=== PATIENT | female | born 1960 | race Caucasian/White ===

== ENCOUNTER 2017-04-10 08:35 | Outpatient (CLI) ==
[2016-02-10 11:48] VITALS: BMI 32.3
--- NOTE | 2017-04-10 09:38 | DEXA ---
EXAM: Bone densitometry. History: Postmenopausal. Findings: Evaluation of the left hip reveals a total bone mineral density of 0.951 grams per centimeter squared with T-score of negative 0.4. Evaluation of the right hip reveals a total bone mineral density of 0.914 grams per centimeter square d with T-score of negative 0.7. Impression: Normal bone mineral density of bilateral hips.
--- NOTE | 2017-04-11 08:33 | MAMMO ---
EXAM: Bilateral digital screening mammogram History: Screening Comparison: Bilateral mammogram 12/08/2013 Findings: MLO and CC views of bilateral breasts demonstrate scattered fibroglandular breast parenchy ma. CAD was reviewed by the radiologist. Stable benign bilateral breast calcifications. There are no dominant masses, no suspicious microcalcifications and no architectural distortions Impression: Benign stable mammogram. Recommend followup routine screening mammography in 1 year. BIRADS 2
== END 2017-04-10 08:36 | disposition home or self-care (01) ==
LOC: RAD 08:35
PROVIDERS: ATTEND Family Medicine
DX: Z12.31 Encounter for screening mammogram for malignant neoplasm of breast (principal); E89.40 Asymptomatic postprocedural ovarian failure; Z78.0 Asymptomatic menopausal state
CPT/HCPCS: 77067

== ENCOUNTER 2017-11-02 09:43 | Outpatient (CLI) | payer OTHER ==
[2016-02-10 11:48] VITALS: BMI 32.3
--- NOTE | 2017-11-02 10:24 | CT ---
EXAM: CT scan thorax without contrast HISTORY: Weight loss COMPARISON: None. FINDINGS: Tenuous axial images obtained through the thorax without contrast utilizing 5-mm collimati on. Sagittal and coronal reconstructions were imaged and reviewed. The thoracic inlet is unremarkabl e. There is no evidence of mediastinal or axillary lymphadenopathy. Evaluation of hilar structures is limited without intravenous contrast. The ascending aorta is mildly ectatic measuring 3.3 centime ters. The heart is normal in size without pericardial effusion.. The lungs are clear bilaterally.. Bone windows reveals no evidence of lytic or blastic lesions. IMPRESSION: No acute intrathoracic findings.
--- NOTE | 2017-11-02 10:32 | CT ---
EXAM: CT scan abdomen pelvis without contrast HISTORY: Weight loss COMPARISON: None. FINDINGS: Contiguous axial images obtained through the abdomen pelvis without contrast utilizing 5-m m collimation. Sagittal and coronal reconstructions were imaged and reviewed. There has been prior c holecystectomy. The liver, pancreas, spleen and adrenal glands have normal unenhanced CT appearance. The kidneys are morphologically normal. Atherosclerotic changes are seen involving the aorta with out aneurysm formation.. There has been prior hysterectomy. Bladder is decompressed. There is no fr ee fluid or inflammatory changes.. Bone windows reveals no evidence of lytic or blastic lesions. De generative changes are noted at L5-S1. IMPRESSION: Acute intra-abdominal findings. ASVD without aneurysm. Prior hysterectomy
== END 2017-11-02 09:44 | disposition home or self-care (01) ==
LOC: RAD 09:43
PROVIDERS: ATTEND Family Medicine
DX: R63.4 Abnormal weight loss (principal); R11.0 Nausea

== ENCOUNTER 2017-12-11 06:30 | Outpatient (CLI) | payer OTHER ==
[2016-02-10 11:48] VITALS: BMI 32.3
[2017-12-11] MEDS ORDERED: DOBUTAMINE 250 ML IV ONE (07:08)
[2017-12-11] MEDS ORDERED: ATROPINE SULFATE PFS ONE (07:08)
--- NOTE | 2017-12-11 12:46 | ECHOSTRESS ---
Date of Exam: 12/11/17 Ordering Physician: DR. DONALD LANDA Reason for Echo: SOB, CHEST PAIN, HYPERTENSION, DOBUTAMINE STRESS TEST--NO ISCHEMIA M-Mode Normal Adult Results LV Dimensions Normal Adult Results AoV Opening excursions >1.6 LVEDD-base- 3.5-5.8 Ao root dimensions 2.0-3.7 LVESD-base- 3.1-4.6 L. Atrium dimensions 1.9-3.8 Post. Wall thickness 0.8-1.1 IV septum (thickness) 0.7-1.2 Post. Wall excursion 0.72-1.3 Septal motion Systolic motion R. Ventricular cavity 1.5-2.0 LVEF 60% Paradoxical septal wall motion 2-D: NORMAL LEFT VENTRICULAR CONTRACTILITY--RESTING AND DURING DOBUTAMINE INFUSION M-MODE: MV: AV: TV: PV: CHAMBER SIZE: WALL MOTION: NORMAL LEFT VENTRICULAR CONTRACTILITY--RESTING AND DURING DOBUTAMINE INFUSION PERICARDIUM: INTERPRETATION: 1. NORMAL LEFT VENTRICULAR CONTRACTILITY--RESTING AND DURING DOBUTAMINE INFUSION MTDD
--- NOTE | 2017-12-11 12:55 | DOBSTECHO ---
Date of Test: 12/11/17 Ordering Physician: DR. DONALD LANDA Smoking History: NON SMOKER Reason for Examination: CHEST PAIN, HTN, SOB Current Medications: COGENTIN, FLEXERIL, HCTZ, KLOR-CON, ZANTAC Height: 66 " Weight: 171 LBS Target Heart Rate: 138/163 S-T Segment Stage Time HR BPM BP MMHG Rhythm +/- Elevation Depression Comments/ Symptoms Control Sitting 69 120/62 SR X NONE Dobutamine 250mg/D5W 5cmg/KG/mn 10cmg/KG/mn 3:00 78 150/72 SR X NO COMMENTS 15cmg/KG/mn 2:00 88 SR X NO COMMENTS 20cmg/KG/mn 2:00 94 160/68 SR X NO COMMENTS 25cmg/KG/mn 2:00 97 SR X NO COMMENTS 30cmg/KG/mn 2:00 109 160/70 SR X NO COMMENTS 35cmg/KG/mn 2:00 113 SR X .12 MG ATROPINE 40cmg/KG/mn 3:52 132 160/60 SR X NO COMMENTS Time: 3:00 HR B/P Time: 7:00 HR B/P Time: HR B/P Recovery 115 148/78 Recovery 102 130/80 Recovery Total Time: 15:52 Maximum Heart Rate Reached: 132 Interpretation: 98% OXYGEN SATURATION WITH DOBUTAMINE INFUSION 1. NO EVIDENCE OF ISCHEMIA BY ST-T WAVE 2. NO CHEST PAIN OR DISCOMFORT 3. NORMAL LEFT VENTRICULAR CONTRACTILITY--RESTING AND WITH DOBUTAMINE INFUSION MTDD
== END 2017-12-11 06:31 | disposition home or self-care (01) ==
LOC: CAR 06:30
PROVIDERS: ATTEND Family Medicine
DX: R06.02 Shortness of breath (principal)

== ENCOUNTER 2018-09-25 08:00 | Outpatient (RCR) ==
[2016-02-10 11:48] VITALS: BMI 32.3
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
--- NOTE | 2018-09-03 13:28 | RS.OTDNOTE ---
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 Current Complaints/Gains: Pt with c/o increased swelling and pain upon entering therapy but states decreased pain and swelling noted following tx. States fair compliance with HEP but that she has not been utilizing a CP and that she has been taking her thumb spica splint off duirng sitting rests. Pain Assessment - Pain Description Pain Description: Radiating, Sharp, Aching Pain Location: Left wrist ulnar side. and left thumb. Pain Description: sharp pain in the thumb, and wrist area. Modalities - Treatment Modality: Ultrasound Parameters/Method Applied: .04w/cm2 at 50%, 3.3mHz Patient Position: Sitting - Hot Pack/Cryotherapy Treatment: Cryotherapy Comments:: x10 mins with pt ed on importance of CP application 3+ times daily at home. Interventions - Exercise/Activities Exercise/Activities/Manual Therapy: Retrograde massage performed with pt ed on performing at home, use of gloves for edema tio, ice pack application, positoning, and HEP worksheets given in [place]. Pt instructed on thumb and wrist exercises and to perform several times daily including thumb opposition, thumb flexion/extension, radial extension, yost abduction/circumduction, and opposition. Tendon glides of straight positon, hook fist, straight fist, and full fist along with wrist ex's of wrist flexion/extension, radial/ulnar deviationm wrist circles and pro/supination. HOME EXERCISE PROGRAM: Pt has protocol to follow from . Stage 2 to begin Sep 10. Stage 3 Sep 24, stage 4 October 22. - Objective Findings Objective Findings:: Pt has alot of pain with the thumb. Pt has limited movements of the left thumb and UE. Pt has edema of the left thumb in the hypothenar and thenar eminences. - Charges Timed Code Treatment Minutes: 52 Total Treatment Time: 61 Procedures billed for this date of service:: CP US EX MT Assessment Patient Education: Education of diagnosis, Body/Joint mechanics, Home Exercise Program, Home Safety, Activity Modification, Education of Plan of Care Patient demonstrates compliance with HEP?: Yes Short Term Goals Goal #1: Pt to increase pronation/supination AROM to WFL. Goal to be met by: 09/13/18 Progress towards goal: Progressing Comments: performed in GE position this date Goal #2: Pt to increase LUE opposition to thumb to lacks 1-2 cm. Goal to be met by: 09/13/18 Progress towards goal: Progressing Goal #3: Pt to increase L wrist extension to 55 deg. Goal to be met by: 09/13/18 Progress towards goal: Progressing Goal #4: Pt pain to decrease to 1-2/10. Goal to be met by: 09/13/18 Progress towards goal: Progressing Retirement Goals Goal #1: Pt to increase LUE hand and wrist AROM to be WFL. Goal to be met by: 10/11/18 Progress towards goal: Progressing Goal #2: Pt to be independent with home exercise program. Goal to be met by: 10/11/18 Progress towards goal: Progressing Goal #3: Pt pain in L hand/wrist 0-1/10. Goal to be met by: 10/11/18 Progress towards goal: Progressing Goal #4: Pt to increase strength of L hand/wrist to 4+/5. Goal to be met by: 10/11/18 Progress towards goal: Progressing Plan Dates of Retirement Goals: 10/11/18 Expiration date of current Insurance Approval:: 10/11/18 PLAN: Continue per POC to max fx (L) hand AROM and strength.
--- NOTE | 2018-09-04 13:47 | RS.OTDNOTE ---
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 Current Complaints/Gains: Pt states she is pleased with her progress and that she is surprised how much the swelling has decreased. States increased compliance/understanding of HEP and applying CP. Pain Assessment - Pain Description Pain Description: Radiating, Sharp, Aching Pain Location: Left wrist ulnar side. and left thumb. Pain Description: sharp pain in the thumb, and wrist area. Modalities - Treatment Modality: Ultrasound Parameters/Method Applied: .04w/cm2 at 50%, 3.3mHz Patient Position: Sitting - Hot Pack/Cryotherapy Treatment: Cryotherapy Comments:: ice massage/MT with continued ed for CP application at home. Interventions - Exercise/Activities Exercise/Activities/Manual Therapy: Pt education continued on thumb and wrist exercises and to perform several times daily including thumb opposition, thumb flexion/extension, radial extension, yost abduction/circumduction, and opposition. Tendon glides of straight positon, hook fist, straight fist, and full fist along with wrist ex's of wrist flexion/extension, radial/ulnar deviation wrist circles and pro/supination. Positioning of hand and use of glove for edema tio. HOME EXERCISE PROGRAM: Pt has protocol to follow from . Stage 2 to begin Sep 10. Stage 3 Sep 24, stage 4 October 22. - Objective Findings Objective Findings:: Pt has alot of pain with the thumb. Pt has limited movements of the left thumb and UE. Pt has edema of the left thumb in the hypothenar and thenar eminences. - Charges Timed Code Treatment Minutes: 58 Total Treatment Time: 58 Procedures billed for this date of service:: MT EX2 US Assessment Patient Education: Education of diagnosis, Body/Joint mechanics, Home Exercise Program, Home Safety, Activity Modification, Education of Plan of Care Patient demonstrates compliance with HEP?: Yes Short Term Goals Goal #1: Pt to increase pronation/supination AROM to WFL. Goal to be met by: 09/13/18 (GE plane) Progress towards goal: Partially Met Goal #2: Pt to increase LUE opposition to thumb to lacks 1-2 cm. Goal to be met by: 09/13/18 (met digits 2-4.) Progress towards goal: Partially Met Goal #3: Pt to increase L wrist extension to 55 deg. Goal to be met by: 09/13/18 Progress towards goal: Progressing Goal #4: Pt pain to decrease to 1-2/10. Goal to be met by: 09/13/18 Progress towards goal: Progressing [facility] Goals Goal #1: Pt to increase LUE hand and wrist AROM to be WFL. Goal to be met by: 10/11/18 Progress towards goal: Progressing Goal #2: Pt to be independent with home exercise program. Goal to be met by: 10/11/18 Progress towards goal: Progressing Goal #3: Pt pain in L hand/wrist 0-1/10. Goal to be met by: 10/11/18 Progress towards goal: Progressing Goal #4: Pt to increase strength of L hand/wrist to 4+/5. Goal to be met by: 10/11/18 Progress towards goal: Progressing Plan Dates of Passenger Relations Representative Goals: 10/11/18 Expiration date of current Insurance Approval:: 10/11/18 PLAN: Continue per POC to max functional hand AROM/strength
--- NOTE | 2018-09-06 11:14 | RS.OTDNOTE ---
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 Current Complaints/Gains: Pt states good compliance with HEP/CP application. States some "tenderness" radial aspect of forearm. Pain Assessment - Pain Description Pain Description: Radiating, Sharp, Aching Pain Location: Left wrist ulnar side. and left thumb. Pain Description: sharp pain in the thumb, and wrist area. Modalities - Treatment Modality: Ultrasound Parameters/Method Applied: .04w/cm2 x 12 mins, 50% at 3.3mHz Patient Position: Sitting - Hot Pack/Cryotherapy Treatment: Cryotherapy Comments:: Ice massage performed Interventions - Exercise/Activities Exercise/Activities/Manual Therapy: Pt education continued on thumb and wrist exercises and to perform several times daily including thumb opposition, thumb flexion/extension, radial extension, yost abduction/circumduction, and opposition. Tendon glides of straight positon, hook fist, straight fist, and full fist along with wrist ex's of wrist flexion/extension, radial/ulnar deviation wrist circles and pro/supination. Positioning of hand and use of glove for edema tio. HOME EXERCISE PROGRAM: Pt has protocol to follow from [facility]. Stage 2 to begin Sep 10. Stage 3 Sep 24, stage 4 October 22. - Objective Findings Objective Findings:: Pt has alot of pain with the thumb. Pt has limited movements of the left thumb and UE. Pt has edema of the left thumb in the hypothenar and thenar eminences. - Charges Timed Code Treatment Minutes: 49 Total Treatment Time: 52 Procedures billed for this date of service:: US EX MT Assessment Patient Education: Education of diagnosis, Body/Joint mechanics, Home Exercise Program, Home Safety, Activity Modification, Education of Plan of Care Patient demonstrates compliance with HEP?: Yes Short Term Goals Goal #1: Pt to increase pronation/supination AROM to WFL. Goal to be met by: 09/13/18 (GE plane) Progress towards goal: Met Goal #2: Pt to increase LUE opposition to thumb to lacks 1-2 cm. Goal to be met by: 09/13/18 Progress towards goal: Met Goal #3: Pt to increase L wrist extension to 55 deg. Goal to be met by: 09/13/18 Progress towards goal: Progressing Goal #4: Pt pain to decrease to 1-2/10. Goal to be met by: 09/13/18 Progress towards goal: Progressing [employer] Goals Goal #1: Pt to increase LUE hand and wrist AROM to be WFL. Goal to be met by: 10/11/18 Progress towards goal: Progressing Goal #2: Pt to be independent with home exercise program. Goal to be met by: 10/11/18 Progress towards goal: Progressing Goal #3: Pt pain in L hand/wrist 0-1/10. Goal to be met by: 10/11/18 Progress towards goal: Progressing Goal #4: Pt to increase strength of L hand/wrist to 4+/5. Goal to be met by: 10/11/18 Progress towards goal: Progressing Plan Dates of Retirement Goals: 10/11/18 Expiration date of current Insurance Approval:: 10/11/18 PLAN: Continue per POC/protocol to max functional hand use.
--- NOTE | 2018-09-09 13:18 | RS.OTDNOTE ---
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 Current Complaints/Gains: Pt states she did not take any pain medicine this am. Began PROM this date, with pain increase noted. Pain Assessment - Pain Description Pain Description: Radiating, Sharp, Aching Pain Location: Left wrist ulnar side. and left thumb. Pain Description: sharp pain in the thumb, and wrist area. Current Pain Intensity: 0 Worst Pain Intensity: 8 Modalities - Hot Pack/Cryotherapy Treatment: Cryotherapy Interventions - Exercise/Activities Exercise/Activities/Manual Therapy: Pt education continued on thumb and wrist exercises and to perform several times daily including thumb opposition, thumb flexion/extension, radial extension, yost abduction/circumduction, and opposition. Tendon glides of straight positon, hook fist, straight fist, and full fist along with wrist ex's of wrist flexion/extension, radial/ulnar deviation wrist circles and pro/supination. PROM/gentle stretching and manual therapy also performed. HOME EXERCISE PROGRAM: Pt has protocol to follow from . Stage 2 to begin Sep 10. Stage 3 Sep 24, stage 4 October 22. - Objective Findings Objective Findings:: Pt has alot of pain with the thumb. Pt has limited movements of the left thumb and UE. Pt has edema of the left thumb in the hypothenar and thenar eminences. - Charges Timed Code Treatment Minutes: 48 Total Treatment Time: 61 Procedures billed for this date of service:: MT2 CP EX Assessment Patient Education: Education of diagnosis, Body/Joint mechanics, Home Exercise Program, Home Safety, Activity Modification, Education of Plan of Care Patient demonstrates compliance with HEP?: Yes Short Term Goals Goal #1: Pt to increase pronation/supination AROM to WFL. Goal to be met by: 09/13/18 (GE plane) Progress towards goal: Met Goal #2: Pt to increase LUE opposition to thumb to lacks 1-2 cm. Goal to be met by: 09/13/18 Progress towards goal: Met Goal #3: Pt to increase L wrist extension to 55 deg. Goal to be met by: 09/13/18 (PROM) Progress towards goal: Partially Met Goal #4: Pt pain to decrease to 1-2/10. Goal to be met by: 09/13/18 Progress towards goal: Progressing [facility] Goals Goal #1: Pt to increase LUE hand and wrist AROM to be WFL. Goal to be met by: 10/11/18 Progress towards goal: Progressing Goal #2: Pt to be independent with home exercise program. Goal to be met by: 10/11/18 Progress towards goal: Progressing Goal #3: Pt pain in L hand/wrist 0-1/10. Goal to be met by: 10/11/18 Progress towards goal: Progressing Goal #4: Pt to increase strength of L hand/wrist to 4+/5. Goal to be met by: 10/11/18 Progress towards goal: Progressing Plan Dates of Wet Trimmer Goals: 10/11/18 Expiration date of current Insurance Approval:: 10/11/18 PLAN: Continue per POC to max functional (L) hand strength/AROM
--- NOTE | 2018-09-11 10:20 | RS.OTDNOTE ---
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 Current Complaints/Gains: Pt states some increase of pain and that she took a muscle relaxer this am. States continued good compliance with CP application and HEP. States concern with swelling noted in thenar eminence of palm but notes all ROM is increasing. Pain Assessment - Pain Description Pain Description: Radiating, Sharp, Aching Pain Location: Left wrist ulnar side. and left thumb. Pain Description: sharp pain in the thumb, and wrist area. Current Pain Intensity: 1 Worst Pain Intensity: 7 Modalities - Treatment Modality: Ultrasound Parameters/Method Applied: .04w/cm2 at 3.3/50% - Treatment Comments:: ice massage performed following tx Interventions - Exercise/Activities Exercise/Activities/Manual Therapy: Pt education continued on thumb and wrist exercises and to perform several times daily including thumb opposition, thumb flexion/extension, radial extension, yost abduction/circumduction, and opposition. Tendon glides of straight positon, hook fist, straight fist, and full fist along with wrist ex's of wrist flexion/extension, radial/ulnar deviation wrist circles and pro/supination. PROM/gentle stretching and manual therapy also performed. HOME EXERCISE PROGRAM: Pt has protocol to follow from . Stage 2 to begin Sep 10. Stage 3 Sep 24, stage 4 October 22. - Objective Findings Objective Findings:: Pt has alot of pain with the thumb. Pt has limited movements of the left thumb and UE. Pt has edema of the left thumb in the hypothenar and thenar eminences. - Charges Timed Code Treatment Minutes: 48 Total Treatment Time: 48 Procedures billed for this date of service:: US EX MT Assessment Patient Education: Education of diagnosis, Body/Joint mechanics, Home Exercise Program, Home Safety, Activity Modification, Education of Plan of Care Patient demonstrates compliance with HEP?: Yes Short Term Goals Goal #1: Pt to increase pronation/supination AROM to WFL. Goal to be met by: 09/13/18 (GE plane) Progress towards goal: Met Goal #2: Pt to increase LUE opposition to thumb to lacks 1-2 cm. Goal to be met by: 09/13/18 Progress towards goal: Met Goal #3: Pt to increase L wrist extension to 55 deg. Goal to be met by: 09/13/18 (PROM) Progress towards goal: Partially Met Goal #4: Pt pain to decrease to 1-2/10. Goal to be met by: 09/13/18 Progress towards goal: Progressing Residential Goals Goal #1: Pt to increase LUE hand and wrist AROM to be WFL. Goal to be met by: 10/11/18 Progress towards goal: Progressing Goal #2: Pt to be independent with home exercise program. Goal to be met by: 10/11/18 Progress towards goal: Progressing Goal #3: Pt pain in L hand/wrist 0-1/10. Goal to be met by: 10/11/18 Progress towards goal: Progressing Goal #4: Pt to increase strength of L hand/wrist to 4+/5. Goal to be met by: 10/11/18 Progress towards goal: Progressing Plan Dates of Dumbwaiter Operator Goals: 10/11/18 Expiration date of current Insurance Approval:: 10/11/18 PLAN: Continue per POC to max functional I, strength, and AROM of (L) hand.
--- NOTE | 2018-09-13 10:55 | RS.OTDNOTE ---
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 Current Complaints/Gains: Pt voices and shows therapist skin irritation area on MCP of thumb from her brace. Ed on use of bandage for skin breakdown. Pt voices and demo good compliance of HEP and gaining AROM of digits and wrist. Pain Assessment - Pain Description Pain Description: Radiating, Dull, Aching Pain Location: Left wrist ulnar side. and left thumb. Current Pain Intensity: 1-2 Worst Pain Intensity: 5 Other comments regarding pain:: Took pain medicine this am prior to therapy. Modalities - Treatment Modality: Ultrasound Parameters/Method Applied: .04w/cm2 at 3.3/50% Patient Position: Sitting - Hot Pack/Cryotherapy Treatment: Cryotherapy Interventions - Exercise/Activities Exercise/Activities/Manual Therapy: Pt education continued on thumb and wrist exercises and to perform several times daily including thumb opposition, thumb flexion/extension, radial extension, yost abduction/circumduction, and opposition. Tendon glides of straight positon, hook fist, straight fist, and full fist along with wrist ex's of wrist flexion/extension, radial/ulnar deviation wrist circles and pro/supination. PROM/gentle stretching and manual therapy also performed. HOME EXERCISE PROGRAM: Pt has protocol to follow from . Stage 2 to begin Sep 10. Stage 3 Sep 24, stage 4 October 22. - Objective Findings Objective Findings:: Pt demo good compliance/understanding of HEP. Pt to continue therapy x2 next wk and perform I HEP. AROM increasing with therapy/ PROM. - Charges Timed Code Treatment Minutes: 50 Total Treatment Time: 61 Procedures billed for this date of service:: CP US EX MT Assessment Patient Education: Education of diagnosis, Body/Joint mechanics, Home Exercise Program, Home Safety, Activity Modification, Education of Plan of Care Patient demonstrates compliance with HEP?: Yes Short Term Goals Goal #1: Pt to increase pronation/supination AROM to WFL. Goal to be met by: 09/13/18 (GE plane) Progress towards goal: Met Goal #2: Pt to increase LUE opposition to thumb to lacks 1-2 cm. Goal to be met by: 09/13/18 Progress towards goal: Met Goal #3: Pt to increase L wrist extension to 55 deg. Goal to be met by: 09/13/18 (PROM) Progress towards goal: Met Goal #4: Pt pain to decrease to 1-2/10. Goal to be met by: 09/13/18 Progress towards goal: Progressing Director Vaccine Goals Goal #1: Pt to increase LUE hand and wrist AROM to be WFL. Goal to be met by: 10/11/18 Progress towards goal: Progressing Goal #2: Pt to be independent with home exercise program. Goal to be met by: 10/11/18 Progress towards goal: Progressing Goal #3: Pt pain in L hand/wrist 0-1/10. Goal to be met by: 10/11/18 Progress towards goal: Progressing Goal #4: Pt to increase strength of L hand/wrist to 4+/5. Goal to be met by: 10/11/18 Progress towards goal: Progressing Plan Dates of Custodial Goals: 10/11/18 Expiration date of current Insurance Approval:: 10/11/18 PLAN: Continue per POC to max functional hand AROM/strength.
--- NOTE | 2018-09-16 09:32 | RS.OTDNOTE ---
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 Current Complaints/Gains: Pt states c/o thenar eminence "nerve pain" States use of cushion material is helping with thumb/MCP and snuff box skin breakdown. Continued education for skin integ. and HEP. Pain Assessment - Pain Description Pain Description: Radiating, Dull, Aching Pain Location: Left wrist ulnar side. and left thumb. Pain Description: sharp pain in the thumb, and wrist area. Current Pain Intensity: 2 Worst Pain Intensity: 5 Modalities - Treatment Modality: Ultrasound Parameters/Method Applied: .04w/cm2 Patient Position: Sitting - Hot Pack/Cryotherapy Treatment: Cryotherapy Comments:: ice massage performed Interventions - Exercise/Activities Exercise/Activities/Manual Therapy: Pt education continued on thumb and wrist exercises and to perform several times daily including thumb opposition, thumb flexion/extension, radial extension, yost abduction/circumduction, and opposition. Tendon glides of straight positon, hook fist, straight fist, and full fist along with wrist ex's of wrist flexion/extension, radial/ulnar deviation wrist circles and pro/supination. PROM/gentle stretching and manual therapy also performed. HOME EXERCISE PROGRAM: Pt has protocol to follow from . Stage 2 to begin Sep 10. Stage 3 Sep 24, stage 4 October 22. - Objective Findings Objective Findings:: Pt demo good compliance/understanding of HEP. Pt to continue therapy x2 next wk and perform I HEP. AROM increasing with therapy/ PROM. - Charges Timed Code Treatment Minutes: 58 Total Treatment Time: 58 Procedures billed for this date of service:: MT2 EX US Assessment Patient Education: Education of diagnosis, Body/Joint mechanics, Home Exercise Program, Home Safety, Activity Modification, Education of Plan of Care Patient demonstrates compliance with HEP?: Yes Short Term Goals Goal #1: Pt to increase pronation/supination AROM to WFL. Goal to be met by: 09/13/18 (GE plane) Progress towards goal: Met Goal #2: Pt to increase LUE opposition to thumb to lacks 1-2 cm. Goal to be met by: 09/13/18 Progress towards goal: Met Goal #3: Pt to increase L wrist extension to 55 deg. Goal to be met by: 09/13/18 (PROM) Progress towards goal: Met Goal #4: Pt pain to decrease to 1-2/10. Goal to be met by: 09/13/18 Progress towards goal: Progressing Venipuncturist Goals Goal #1: Pt to increase LUE hand and wrist AROM to be WFL. Goal to be met by: 10/11/18 Progress towards goal: Progressing Goal #2: Pt to be independent with home exercise program. Goal to be met by: 10/11/18 Progress towards goal: Progressing Goal #3: Pt pain in L hand/wrist 0-1/10. Goal to be met by: 10/11/18 Progress towards goal: Progressing Goal #4: Pt to increase strength of L hand/wrist to 4+/5. Goal to be met by: 10/11/18 Progress towards goal: Progressing Plan Dates of [facility] Goals: 10/11/18 Expiration date of current Insurance Approval:: 10/11/18 PLAN: Continue per POC to max functional hand use.
--- NOTE | 2018-09-18 10:04 | RS.OTDNOTE ---
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 Current Complaints/Gains: Pt continues stating good compliance with HEP. States the extra "cushion" has helped with skin irritation. States she is having kidney trouble and attributes swelling to issue. Pain Assessment - Pain Description Pain Description: Radiating, Dull, Aching Pain Location: Left wrist ulnar side. and left thumb. Current Pain Intensity: 2 Worst Pain Intensity: 4-5 Modalities - Treatment Modality: Ultrasound Parameters/Method Applied: .04w/cm2 x 12 mins, pulsed at 50% Patient Position: Sitting - Hot Pack/Cryotherapy Treatment: Cryotherapy Comments:: Ice massage performed Interventions - Exercise/Activities Exercise/Activities/Manual Therapy: Pt education continued on thumb and wrist exercises and to perform several times daily including thumb opposition, thumb flexion/extension, radial extension, yost abduction/circumduction, and opposition. Tendon glides of straight positon, hook fist, straight fist, and full fist along with wrist ex's of wrist flexion/extension, radial/ulnar deviation wrist circles and pro/supination. PROM/gentle stretching and manual therapy also performed. HOME EXERCISE PROGRAM: Pt has protocol to follow from . Stage 2 to begin Sep 10. Stage 3 Sep 24, stage 4 October 22. - Objective Findings Objective Findings:: Pt demo good compliance/understanding of HEP. Pt to continue therapy x2 next wk and perform I HEP. AROM increasing with therapy/ PROM. - Charges Timed Code Treatment Minutes: 56 Total Treatment Time: 56 Procedures billed for this date of service:: MT2 EX Assessment Patient Education: Education of diagnosis, Body/Joint mechanics, Home Exercise Program, Home Safety, Activity Modification, Education of Plan of Care Patient demonstrates compliance with HEP?: Yes Short Term Goals Goal #1: Pt to increase pronation/supination AROM to WFL. Goal to be met by: 09/13/18 (GE plane) Progress towards goal: Met Goal #2: Pt to increase LUE opposition to thumb to lacks 1-2 cm. Goal to be met by: 09/13/18 Progress towards goal: Met Goal #3: Pt to increase L wrist extension to 55 deg. Goal to be met by: 09/13/18 Progress towards goal: Met Goal #4: Pt pain to decrease to 1-2/10. Goal to be met by: 09/13/18 Progress towards goal: Progressing Comments: 2-4/5 Director Of Community Center Goals Goal #1: Pt to increase LUE hand and wrist AROM to be WFL. Goal to be met by: 10/11/18 (Decreased radial/ulna deviation) Progress towards goal: Partially Met Goal #2: Pt to be independent with home exercise program. Goal to be met by: 10/11/18 Progress towards goal: Progressing Goal #3: Pt pain in L hand/wrist 0-1/10. Goal to be met by: 10/11/18 Progress towards goal: Progressing Goal #4: Pt to increase strength of L hand/wrist to 4+/5. Goal to be met by: 10/11/18 Progress towards goal: Progressing Plan Dates of Director Of Community Center Goals: 10/11/18 Expiration date of current Insurance Approval:: 10/11/18 PLAN: Continue per POC, protocol to advance to TE/strengthening/dry drug worker ex's next wk. OTR to re-assess pt on next (10th visit).
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
--- NOTE | 2018-09-25 09:35 | RS.OTDNOTE ---
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 Current Complaints/Gains: Pt at 10 wks post op today, ed on HEP with use of yellow t-band/putty. Pt instructed for splint use at night only. Pt states pain at 5/10 and states she did take her pain medicine this morning. Pain Assessment - Pain Description Pain Description: Radiating, Dull, Aching Pain Location: Left wrist ulnar side. and left thumb. Pain Description: sharp pain in the thumb, and wrist area. Current Pain Intensity: 2 Worst Pain Intensity: 5 Modalities - Treatment Parameters/Method Applied: .04w/cm2 x 10 mins Treatment Area: thenar eminence/snuff box Patient Position: Sitting - Hot Pack/Cryotherapy Treatment: Cryotherapy Comments:: Ice massage performed following tx Interventions - Exercise/Activities Exercise/Activities/Manual Therapy: 10 wks post-op TE protocol this date. Pt ed and completed yellow/red t-putty/digi-flex and 1# hand weight/yellow tband with PRE's ed performed for HEP. AROM wrist sports broadcaster performed. Pt education continued on thumb and wrist exercises and to perform several times daily including thumb opposition, thumb flexion/extension, radial extension, yost abduction/circumduction, and opposition. Tendon glides of straight positon, hook fist, straight fist, and full fist along with wrist ex's of wrist flexion/ extension, radial/ulnar deviation wrist circles and pro/supination. PROM/ gentle stretching and manual therapy performed with measurments performed for AROM/PROM and sampler pickup strengths. HOME EXERCISE PROGRAM: Pt has protocol to follow from . Stage 2 to begin Sep 10. Stage 3 Sep 24, stage 4 October 22. - Other Treatment/Services Treatment Details: GS (R)41# (L)[id number]#16#. Lateral pinch 8#. Tip-tip 7# - Objective Findings Objective Findings:: Pt demo good compliance/understanding of HEP. Pt to continue therapy x2 next wk and perform I HEP. AROM increasing with therapy/ PROM. - Charges Timed Code Treatment Minutes: 59 Total Treatment Time: 59 Procedures billed for this date of service:: MT EX2 Assessment Patient Education: Education of diagnosis, Body/Joint mechanics, Home Exercise Program, Home Safety, Activity Modification, Education of Plan of Care Patient demonstrates compliance with HEP?: Yes Short Term Goals Goal #1: Pt to tolerate LUE progressive putty exercises slowly. Goal to be met by: 10/04/18 (GE plane) Progress towards goal: Progressing Goal #2: Pt to tolerate progressive pinching exercises slowly Goal to be met by: 10/04/18 Progress towards goal: Progressing Goal #3: Pt to increase L wrist extension to 55 deg. Goal to be met by: 10/04/18 (PROM-GE ) Progress towards goal: Partially Met Goal #4: Pt pain to decrease to 1-2/10. Goal to be met by: 10/04/18 Progress towards goal: Progressing Comments: 5/10 Group Home Goals Goal #1: Pt to increase LUE hand and wrist AROM to be WFL. Goal to be met by: 10/18/18 (Decreased radial/ulna deviation) Progress towards goal: Partially Met Goal #2: Pt to be independent with home exercise program. Goal to be met by: 10/18/18 Progress towards goal: Progressing Goal #3: Pt pain in L hand/wrist 0-1/10. Goal to be met by: 10/18/18 Progress towards goal: Progressing Goal #4: Pt to increase strength of L hand/wrist to 4+/5. Goal to be met by: 10/18/18 Progress towards goal: Progressing Plan Dates of Group Home Goals: 10/18/18 Expiration date of current Insurance Approval:: 10/18/18 PLAN: Continue per POC to max functional hand use and strength.
== END 2018-09-26 23:59 ==
PROVIDERS: ATTEND Orthopaedic Surgery
DX: M25.832 Other specified joint disorders, left wrist (principal)

== ENCOUNTER 2018-10-16 08:00 | Outpatient (RCR) ==
[2016-02-10 11:48] VITALS: BMI 32.3
--- NOTE | 2018-09-27 10:25 | RS.OTDNOTE ---
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 Current Complaints/Gains: Pt states that she has been removing thumb splint as soon as she gets up in the mornings. States continued good compliance with HEP and is issued red t-putty today for wknd PRE's. Pain Assessment - Pain Description Pain Description: Radiating, Dull, Throbbing, Aching Pain Location: Left wrist ulnar side. and left thumb. Pain Description: sharp pain in the thumb, and wrist area. Current Pain Intensity: 2 Worst Pain Intensity: 7 Modalities - Treatment Modality: Ultrasound Parameters/Method Applied: .04w/cm2 x 12 mins to thenar eminence. Patient Position: Sitting - Hot Pack/Cryotherapy Treatment: Cryotherapy Comments:: CP x 10+ mins following tx. Interventions - Exercise/Activities Exercise/Activities/Manual Therapy: Pt ed and completed yellow/red t-putty/ green digi-flex/clothes pen and 1# hand weight/yellow tband with PRE's ed continued for HEP. AROM wrist crochet machine operator, jrodi-flex and digi-extend performed. Pt education continued on thumb and wrist exercises and to perform several times daily including thumb opposition, thumb flexion/extension, radial extension, yost abduction/circumduction, and opposition. Tendon glides of straight positon, hook fist, straight fist, and full fist along with wrist ex's of wrist flexion/extension, radial/ulnar deviation wrist circles and pro/ supination. PROM/gentle stretching and manual therapy performed. HOME EXERCISE PROGRAM: Pt has protocol to follow from . Stage 2 to begin Sep 10. Stage 3 Sep 24, stage 4 October 22. - Objective Findings Objective Findings:: Pt demo good compliance/understanding of HEP. Pt to continue therapy x2 next wk and perform I HEP. AROM increasing with therapy/ PROM. - Charges Timed Code Treatment Minutes: 61 Total Treatment Time: 70 Procedures billed for this date of service:: CP US EX2MT Assessment Patient Education: Education of diagnosis, Body/Joint mechanics, Home Exercise Program, Home Safety, Activity Modification, Education of Plan of Care Patient demonstrates compliance with HEP?: Yes Short Term Goals Goal #1: Pt to tolerate LUE progressive putty exercises slowly. Goal to be met by: 10/04/18 (red) Progress towards goal: Progressing Goal #2: Pt to tolerate progressive pinching exercises slowly Goal to be met by: 10/04/18 Progress towards goal: Progressing Goal #3: Pt to increase L wrist extension to 55 deg. Goal to be met by: 10/04/18 (PROM-GE ) Progress towards goal: Partially Met Goal #4: Pt pain to decrease to 1-2/10. Goal to be met by: 10/04/18 Progress towards goal: Progressing Half-Way Goals Goal #1: Pt to increase LUE hand and wrist AROM to be WFL. Goal to be met by: 10/18/18 (Decreased radial/ulna deviation) Progress towards goal: Partially Met Goal #2: Pt to be independent with home exercise program. Goal to be met by: 10/18/18 Progress towards goal: Progressing Goal #3: Pt pain in L hand/wrist 0-1/10. Goal to be met by: 10/18/18 Progress towards goal: Progressing Goal #4: Pt to increase strength of L hand/wrist to 4+/5. Goal to be met by: 10/18/18 Progress towards goal: Progressing Plan Dates of Half-Way Goals: 10/18/18 Expiration date of current Insurance Approval:: 10/18/18 PLAN: Continue per POC to max fx hand use with increased strength.
--- NOTE | 2018-09-30 09:45 | RS.OTDNOTE ---
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 Current Complaints/Gains: Pt complains of some edema of the Left thumb and left forearm. Pt says the scar tissue and bubbles on the left ulnar area are decreasing. Pt still has taut left thumb and has difficulty with opposition to the Left MP to PIP joints. Pt tolerated therapy well. Pain Assessment - Pain Description Pain Description: Radiating, Dull, Throbbing, Aching Pain Location: Left wrist ulnar side. and left thumb. Pain Description: sharp pain in the thumb, and wrist area. Current Pain Intensity: 0 Other comments regarding pain:: Pt reports she took her pain medication today with her flexiril. Modalities - Treatment Modality: Ultrasound Parameters/Method Applied: .4 w/cm2 to keep the thermal component out of the treatment. Treatment Area: Left thumb dorsal aspect down the radial aspect of the Left UE. Patient Position: Sitting - Hot Pack/Cryotherapy Treatment: Cryotherapy Interventions - Exercise/Activities Exercise/Activities/Manual Therapy: Pt ed and completed yellow/red t-putty/ green digi-flex/clothes pen and 1# hand weight/yellow tband with PRE's ed continued for HEP. AROM wrist school librarian, and digi-extend performed. Pt education continued on thumb and wrist exercises and to perform several times daily including thumb opposition, thumb flexion/extension, radial extension, yost abduction/circumduction, and opposition. Tendon glides of straight positon, hook fist, straight fist, and full fist along with wrist ex's of wrist flexion/extension, radial/ulnar deviation wrist circles and pro/supination. PROM/gentle stretching and manual therapy performed. HOME EXERCISE PROGRAM: Pt has protocol to follow from . Stage 2 to begin Sep 10. Stage 3 Sep 24, stage 4 October 22. - Objective Findings Objective Findings:: Pt demo good compliance/understanding of HEP. Pt to continue therapy x2 next wk and perform I HEP. AROM increasing with therapy/ PROM. - Charges Timed Code Treatment Minutes: 60 Total Treatment Time: 73 Procedures billed for this date of service:: MT, EX x 2, US, CP Assessment Assessment: Pt has mild edema of the Left thumb and wrist. Pt tolerated exercises well. Manual therapy loosened thumb. Pt tolerated exercises well. Pt requested a time to rest her hand. Pt did not complain of increased pain. Pt had difficulty with opposition of left thumb to the small digit Mp to PIP joint. Patient demonstrates compliance with HEP?: Yes Short Term Goals Goal #1: Pt to tolerate LUE progressive putty exercises slowly. Goal to be met by: 10/04/18 (red) Progress towards goal: Progressing Goal #2: Pt to tolerate progressive pinching exercises slowly Goal to be met by: 10/04/18 Progress towards goal: Progressing Goal #3: Pt to increase L wrist extension to 55 deg. Goal to be met by: 10/04/18 (PROM-GE ) Progress towards goal: Partially Met Goal #4: Pt pain to decrease to 1-2/10. Goal to be met by: 10/04/18 Progress towards goal: Progressing Penitentiary Goals Goal #1: Pt to increase LUE hand and wrist AROM to be WFL. Goal to be met by: 10/18/18 (Decreased radial/ulna deviation) Progress towards goal: Partially Met Goal #2: Pt to be independent with home exercise program. Goal to be met by: 10/18/18 Progress towards goal: Progressing Goal #3: Pt pain in L hand/wrist 0-1/10. Goal to be met by: 10/18/18 Progress towards goal: Progressing Goal #4: Pt to increase strength of L hand/wrist to 4+/5. Goal to be met by: 10/18/18 Progress towards goal: Progressing Plan Dates of Civil Engineering Design Draftsperson Goals: 10/18/18 Expiration date of current Insurance Approval:: 10/18/18 PLAN: continue with POC
--- NOTE | 2018-10-03 13:09 | RS.OTDNOTE ---
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 Current Complaints/Gains: Pt reports her pain is improving. She came in with 0/ 10 pain today but she took a pain pill this morning. Pt reports pain in LUE thumb increased to 4/10. Pt is improving in her thumb AROM to WFL. Pt has a little tightness in left thumb opposition to the small digit. Pt reports she wears her splint in the morning until she comes to therapy. Pt has tightness in LUE wrist extension. Pain Assessment - Pain Description Pain Description: Radiating, Dull, Throbbing, Aching Pain Location: Left wrist ulnar side. and left thumb. Pain Description: sharp pain in the thumb, and wrist area. Current Pain Intensity: 4 Modalities - Treatment Modality: Ultrasound Parameters/Method Applied: .4 w/cm2 to left thumb abduction. Treatment Area: Left thumb dorsal aspect and hypothenar eminence. Patient Position: Sitting - Hot Pack/Cryotherapy Treatment: Cryotherapy Interventions - Exercise/Activities Exercise/Activities/Manual Therapy: Pt ed and completed yellow/red t-putty/ green digi-flex/clothes pen and 1# hand weight/yellow tband with PRE's ed continued for HEP. AROM wrist operating room registered nurse, and digi-extend performed. Pt education continued on thumb and wrist exercises and to perform several times daily including thumb opposition, thumb flexion/extension, radial extension, yost abduction/circumduction, and opposition. Tendon glides of straight positon, hook fist, straight fist, and full fist along with wrist ex's of wrist flexion/extension, radial/ulnar deviation wrist circles and pro/supination. PROM/gentle stretching and manual therapy performed. HOME EXERCISE PROGRAM: Pt has protocol to follow from . Stage 2 to begin Sep 10. Stage 3 Sep 24, stage 4 October 22. - Objective Findings Objective Findings:: Pt demo good compliance/understanding of HEP. Pt to continue therapy x2 next wk and perform I HEP. AROM increasing with therapy/ PROM. - Charges Timed Code Treatment Minutes: 60 Total Treatment Time: 75 Procedures billed for this date of service:: MT, EX x 2, US, CP Assessment Assessment: Pt is weakness in the LUE. Pt has improved with her AROM of the LUE thumb. Pt is improving toward her goals. Problems/Comments: Tenderness and weakness of the left Upper extremity. Patient demonstrates compliance with HEP?: Yes Short Term Goals Goal #1: Pt to tolerate LUE progressive putty exercises slowly. Goal to be met by: 10/04/18 (red) Progress towards goal: Progressing Goal #2: Pt to tolerate progressive pinching exercises slowly Goal to be met by: 10/04/18 Progress towards goal: Progressing Goal #3: Pt to increase L wrist extension to 55 deg. Goal to be met by: 10/04/18 (PROM-GE ) Progress towards goal: Partially Met Goal #4: Pt pain to decrease to 1-2/10. Goal to be met by: 10/04/18 Progress towards goal: Progressing Detention Goals Goal #1: Pt to increase LUE hand and wrist AROM to be WFL. Goal to be met by: 10/18/18 (Decreased radial/ulna deviation) Progress towards goal: Partially Met Goal #2: Pt to be independent with home exercise program. Goal to be met by: 10/18/18 Progress towards goal: Progressing Goal #3: Pt pain in L hand/wrist 0-1/10. Goal to be met by: 10/18/18 Progress towards goal: Progressing Goal #4: Pt to increase strength of L hand/wrist to 4+/5. Goal to be met by: 10/18/18 Progress towards goal: Progressing Plan Dates of Detention Goals: 10/18/18 Expiration date of current Insurance Approval:: 10/14/18 PLAN: Continue through her appointments to 10/11/18 and OT to write a progress note for the doctor appointment on 10/14/18.
--- NOTE | 2018-10-08 08:57 | RS.OTDNOTE ---
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 Current Complaints/Gains: Pt has increased swelling today with reddness and warmth to the touch. States she "stumbled and hit her hand on her porch." States she donned her brace following for support and iced her hand/wrist x2. Pain Assessment - Pain Description Pain Description: Radiating, Dull, Throbbing, Aching Pain Location: Left wrist ulnar side. and left thumb. Pain Description: sharp pain in the thumb, and wrist area. Current Pain Intensity: 3 Worst Pain Intensity: 0 Modalities - Treatment Modality: Ultrasound Parameters/Method Applied: .04w/cm2 x 10 mins Treatment Area: ulna - Hot Pack/Cryotherapy Treatment: Cryotherapy Comments:: x 10 mins following tx Interventions - Exercise/Activities Exercise/Activities/Manual Therapy: Pt ed and completed yellow/red t-putty/ green digi-flex/clothes pen and 1# hand weight/yellow tband with PRE's ed continued for HEP. AROM wrist manager of recruiting, and digi-extend performed. Pt education continued on thumb and wrist exercises and to perform several times daily including thumb opposition, thumb flexion/extension, radial extension, yost abduction/circumduction, and opposition. Tendon glides of straight positon, hook fist, straight fist, and full fist along with wrist ex's of wrist flexion/extension, radial/ulnar deviation wrist circles and pro/supination. PROM/gentle stretching and manual therapy performed. HOME EXERCISE PROGRAM: Pt has protocol to follow from MD. Stage 2 to begin Sep 10. Stage 3 Sep 24, stage 4 October 22. - Other Treatment/Services Treatment Details: Increased swelling. Pain /, decreased to 0 with MT. - Objective Findings Objective Findings:: Pt demo good compliance/understanding of HEP. Pt to continue therapy x2 this wk and return to MD at on Sunday. - Charges Timed Code Treatment Minutes: 48 Total Treatment Time: 61 Procedures billed for this date of service:: CP US EX MT Assessment Patient Education: Education of diagnosis, Body/Joint mechanics, Home Exercise Program, Home Safety, Activity Modification, Education of Plan of Care Patient demonstrates compliance with HEP?: Yes Short Term Goals Goal #1: Pt to tolerate LUE progressive putty exercises slowly. Goal to be met by: 10/04/18 (red) Progress towards goal: Met Goal #2: Pt to tolerate progressive pinching exercises slowly Goal to be met by: 10/04/18 Progress towards goal: Met Goal #3: Pt to increase L wrist extension to 55 deg. Goal to be met by: 10/04/18 Progress towards goal: Met Goal #4: Pt pain to decrease to 1-2/10. Goal to be met by: 10/04/18 Progress towards goal: Partially Met Comments: 3 Snf Goals Goal #1: Pt to increase LUE hand and wrist AROM to be WFL. Goal to be met by: 10/18/18 (Decreased radial/ulna deviation) Progress towards goal: Partially Met Goal #2: Pt to be independent with home exercise program. Goal to be met by: 10/18/18 Progress towards goal: Partially Met Goal #3: Pt pain in L hand/wrist 0-1/10. Goal to be met by: 10/18/18 Progress towards goal: Progressing Goal #4: Pt to increase strength of L hand/wrist to 4+/5. Goal to be met by: 10/18/18 Progress towards goal: Progressing Plan Dates of Snf Goals: 10/18/18 Expiration date of current Insurance Approval:: 10/18/18 PLAN: Continue per POC to max functional hand AROM and strength.
--- NOTE | 2018-10-10 10:45 | RS.OTDNOTE ---
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 Current Complaints/Gains: Swelling and pain decresased this date. Pt states she applied an ice pack several times yesterday and also tried to perform massages for edema. Pain Assessment - Pain Description Pain Description: Radiating, Dull, Throbbing, Aching Pain Location: Left wrist ulnar side. and left thumb. Pain Description: sharp pain in the thumb, and wrist area. Current Pain Intensity: 0 Worst Pain Intensity: 3 Modalities - Hot Pack/Cryotherapy Treatment: Cryotherapy Comments:: CP x 12 mins Interventions - Exercise/Activities Exercise/Activities/Manual Therapy: Pt ed and completed yellow/red t-putty/ green digi-flex/clothes pen and 1/2## hand weight/yellow tband with PRE's ed continued for HEP. AROM wrist processing archivist, and digi-extend performed. Pt education continued on thumb and wrist exercises and to perform several times daily including thumb opposition, thumb flexion/extension, radial extension, yost abduction/circumduction, and opposition. Tendon glides of straight positon, hook fist, straight fist, and full fist along with wrist ex's of wrist flexion/extension, radial/ulnar deviation wrist circles and pro/supination. PROM/gentle stretching and manual therapy performed. HOME EXERCISE PROGRAM: Pt has protocol to follow from MD. Stage 2 to begin Sep 10. Stage 3 Sep 24, stage 4 October 22. - Objective Findings Objective Findings:: Pt demo good compliance/understanding of HEP. Pt to continue therapy x2 this wk and return to MD at on Sunday. - Charges Timed Code Treatment Minutes: 46 Total Treatment Time: 56 Procedures billed for this date of service:: CP EX2 MT Assessment Patient Education: Education of diagnosis, Body/Joint mechanics, Home Exercise Program, Home Safety, Activity Modification, Education of Plan of Care Patient demonstrates compliance with HEP?: Yes Short Term Goals Goal #1: Pt to tolerate LUE progressive putty exercises slowly. Goal to be met by: 10/04/18 (red) Progress towards goal: Met Goal #2: Pt to tolerate progressive pinching exercises slowly Goal to be met by: 10/04/18 Progress towards goal: Met Goal #3: Pt to increase L wrist extension to 55 deg. Goal to be met by: 10/04/18 Progress towards goal: Met Goal #4: Pt pain to decrease to 1-2/10. Goal to be met by: 10/04/18 Progress towards goal: Partially Met Comments: 0-3 Platen Press Operator Apprentice Goals Goal #1: Pt to increase LUE hand and wrist AROM to be WFL. Goal to be met by: 10/18/18 (Decreased radial/ulna deviation) Progress towards goal: Partially Met Goal #2: Pt to be independent with home exercise program. Goal to be met by: 10/18/18 Progress towards goal: Partially Met Goal #3: Pt pain in L hand/wrist 0-1/10. Goal to be met by: 10/18/18 Progress towards goal: Progressing Goal #4: Pt to increase strength of L hand/wrist to 4+/5. Goal to be met by: 10/18/18 Progress towards goal: Progressing Plan Dates of Halfway Goals: 10/18/18 Expiration date of current Insurance Approval:: 10/18/18 PLAN: Continue per POC x2 visits.
--- NOTE | 2018-10-18 15:36 | RS.OTDCSUM ---
Subjective Date of Discharge: 10/16/18 Date of Evaluation: 09/27/18 Number of Visits: 17 Treatment Diagnosis: Ulnar abutment syndrome of left wrist M25.832 Current Level of Function: Pt has met all STG and LTGs. Chemical Machine Tender strength is 25.3#. Pt is independent with ADLS. Current Complaints/Gains: Pt is happy with her progress with her therapy. Pain Assessment - Pain Description Pain Description: Radiating, Dull, Throbbing, Aching Pain Location: Left wrist ulnar side. and left thumb. Pain Description: sharp pain in the thumb, and wrist area. Current Pain Intensity: 0 Worst Pain Intensity: 2 Functional Outcome Measures - G Codes & Severity Modifier G Codes: . Source of G Code score: . Observation - Observation Handedness: Right Shoulder ROM: Bilaterally WFL's Shoulder Muscle Strength: Bilaterally WFL's Elbow ROM: Bilaterally WFL's Elbow Muscle Strength: Bilaterally WFL's Wrist ROM: Bilaterally WFL's Wrist Muscle Strength: Bilaterally WFL's - Left Wrist Strength Left Wrist Extension: 4+ Good + Left Wrist Flexion: 4+ Good + Left Wrist Radial Deviation: 4+ Good + Left Wrist Ulnar Deviation: 4+ Good + Left Forearm Pronation: 4+ Good + Left Forearm Supination: 4+ Good + Palpation Palpation Findings: Tenderness Sensation Right Upper Extremity: Intact/Normal Left Upper Extremity: Intact/Normal Interventions - Exercise/Activities Exercise/Activities/Manual Therapy: Pt ed and completed yellow/red t-putty/ green digi-flex/clothes pen and 1/2## hand weight/yellow tband with PRE's ed continued for HEP. AROM wrist filtering machine tender, and digi-extend performed. Pt education continued on thumb and wrist exercises and to perform several times daily including thumb opposition, thumb flexion/extension, radial extension, yost abduction/circumduction, and opposition. Tendon glides of straight positon, hook fist, straight fist, and full fist along with wrist ex's of wrist flexion/extension, radial/ulnar deviation wrist circles and pro/supination. PROM/gentle stretching and manual therapy performed. HOME EXERCISE PROGRAM: Pt has protocol to follow from MD. Stage 2 to begin Sep 10. Stage 3 Sep 24, stage 4 October 22. - Objective Findings Objective Findings:: Pt demo good compliance/understanding of HEP. Pt to continue therapy x2 this wk and return to MD at on Sunday. - Charges Timed Code Treatment Minutes: . Total Treatment Time: . Procedures billed for this date of service:: . Assessment Assessment: Pt has met all goals and is able to use her LUE hand well. Pt is independent with her home exercise program. Pt did well with her therapy and the physician is pleased with the results. Rehab Potential: Good Short Term Goals Goal #1: Pt to tolerate LUE progressive putty exercises slowly. Goal to be met by: 10/04/18 (red) Progress towards goal: Met Goal #2: Pt to tolerate progressive pinching exercises slowly Goal to be met by: 10/04/18 Progress towards goal: Met Goal #3: Pt to increase L wrist extension to 55 deg. Goal to be met by: 10/04/18 Progress towards goal: Met Goal #4: Pt pain to decrease to 1-2/10. Goal to be met by: 10/04/18 Progress towards goal: Partially Met Criminal Justice Lawyer Goals Goal #1: Pt to increase LUE hand and wrist AROM to be WFL. Goal to be met by: 10/18/18 (Decreased radial/ulna deviation) Progress towards goal: Met Goal #2: Pt to be independent with home exercise program. Goal to be met by: 10/18/18 Progress towards goal: Met Goal #3: Pt pain in L hand/wrist 0-1/10. Goal to be met by: 10/18/18 Progress towards goal: Met Goal #4: Pt to increase strength of L hand/wrist to 4+/5. Goal to be met by: 10/18/18 Progress towards goal: Met Plan Reason for Discharge:: All Goals Met
== END 2018-10-27 23:59 ==
PROVIDERS: ATTEND Orthopaedic Surgery
DX: M25.832 Other specified joint disorders, left wrist (principal)

== ENCOUNTER 2018-11-04 07:55 | Outpatient (CLI) | payer OTHER ==
[2016-02-10 11:48] VITALS: BMI 32.3
--- NOTE | 2018-11-04 08:54 | DI ---
EXAM: Three views of the thoracic spine. History: Thoracic back pain. Findings: No acute fracture or subluxation of the thoracic spine. Cholecystectomy clips. Osteopeni a. Mild to moderate multilevel disc space narrowing with small osteophytes. Impression: 1. No acute osseous abnormality of the thoracic spine. 2. Mild to moderate degenerative disc disease
--- NOTE | 2018-11-04 08:54 | DI ---
EXAM: Three views of the lumbar spine. History: Lower back pain. Findings: Osteopenia. No acute fracture or subluxation of the lumbar spine. Moderate to severe dis c space narrowing at L5-S1 with endplate sclerosis and osteophyte formation. Mild disc space narrowi ng seen elsewhere. There is a moderate to severe facet hypertrophy at L5-S1. Impression: 1. No acute osseous abnormality. 2. Moderate to severe degenerative changes of L5-S1
--- NOTE | 2018-11-04 08:55 | DI ---
EXAM: Three views of the cervical spine. History: Cervical neck pain. Findings: No acute fracture or subluxation of the cervical spine. No prevertebral soft tissue swell ing. Predental space is not widened. Mild to moderate multilevel disc space narrowing with prominen t anterior osteophyte at C6-7. Atherosclerotic vascular calcifications Impression: 1. No acute osseous abnormality of the cervical spine. 2. Mild to moderate degenerative disc disease with prominent anterior osteophyte at C6-7
--- NOTE | 2018-11-04 13:19 | MRI ---
EXAM: Cervical spine MRI with and without contrast TECHNIQUE: Multiplanar multisequence MRI of the cervical spine was performed with and without contra st. COMPARISON: Cervical spine series from 11/04/2018 and thoracic spine MRI from today and cervical spi ne CT from 04/15/2015 HISTORY: Neck pain FINDINGS: There is no compression fracture. Alignment is anatomic. There is no acute soft disc he rniation or extrusion. Cord signal is normal without evidence of edema, myelomalacia, demyelination , mass, syrinx or infarct. There are no abnormal flow voids in the canal to suggest a vascular malfo rmation. Visualized soft tissues and intracranial contents show no acute abnormality. There are no pathologic lymph nodes. The prevertebral soft tissues are not thickened. There is no Chiari malfor mation or acute ligamentous injury. There is no pathologic enhancement. C1-2: There is mild degenerative change. Alignment of the craniocervical junction is anatomic. There is no bone marrow edema, the dens is intact. C2-3: There is disc space desiccation and ridging of the posterior longitudinal ligament with some fa cet and ligamentous and uncovertebral hypertrophy. Canal stenosis: Mild C3 neural foraminal stenosis: None C3-4: There is disc space desiccation and advanced ridging of the posterior longitudinal ligament wit h some mild anterior osteophytosis. Canal stenosis: Moderate C4 neural foraminal stenosis: Mild bilateral C4-5: There is disc space desiccation and advanced ridging of the posterior longitudinal ligament wit h a superimposed broad-based calcified disc osteophyte complex slightly eccentric to the right. Ther e is facet and ligamentous and uncovertebral hypertrophy. There is endplate bone marrow edema consist ent with active disc Canal stenosis: Severe C5 neural foraminal stenosis: Severe right, mild left C5-6: There is disc space desiccation and advanced ridging of the posterior longitudinal ligament wit h facet and ligamentous and uncovertebral hypertrophy. Canal stenosis: Moderate C6 neural foraminal stenosis: Moderate bilateral C6-7: There is disc space desiccation and leftward eccentric broad-based calcified disc osteophyte co mplex with superimposed ridging of the posterior longitudinal ligament along with facet and ligamento us and uncovertebral hypertrophy. Canal stenosis: Severe on the left C7 neural foraminal stenosis: Severe bilateral C7-T1: There is ridging of the posterior longitudinal ligament some facet and ligamentous hypertrophy . Canal stenosis: None C8 neural foraminal stenosis: None IMPRESSION: 1. Extremely severe multilevel degenerative changes as above probably most significant at C4-5 and C 6-7 where there is severe spinal stenosis and severe right C5 and severe bilateral C7 foraminal steno sis. 2. Other mild to moderate degenerative changes as above.
--- NOTE | 2018-11-04 13:33 | MRI ---
EXAM: Thoracic spine MRI with and without contrast TECHNIQUE: Multiplanar multisequence MRI of the thoracic spine was performed with and without contr ast. COMPARISON: Cervical spine and lumbar spine MRI from today and CT resting spine from 04/15/2015 and t horacic spine series from 11/04/2018 HISTORY: Back pain FINDINGS: There is no bone marrow edema, acute compression or subluxation. Alignment is anatomic. Cor d signal is normal with no evidence for demyelination, infarct or syrinx. There is no focal or latera lizing disc herniation present. There is no acute soft tissue abnormality. There is no pathologic e nhancement. C7-T1: There is mild disc desiccation. There is no significant foraminal or canal stenosis. T1-2: There is mild disc desiccation. There is no significant foraminal or canal stenosis. T2-3: There is mild disc desiccation. There is no significant foraminal or canal stenosis. T3-4: There is mild disc desiccation. There is no significant foraminal or canal stenosis. T4-5: There is mild disc desiccation. There is no significant foraminal or canal stenosis. T5-6: There is mild disc desiccation. There is no significant foraminal or canal stenosis. T6-7: There is mild disc desiccation. There is no significant foraminal or canal stenosis. T7-8: There is mild disc desiccation. There is a minimal leftward bulge. There is no significant for aminal or canal stenosis. T8-9: There is mild disc desiccation. There is no significant foraminal or canal stenosis. T9-10: There is mild disc desiccation. There is a minimal leftward bulge. There is no significant fo raminal or canal stenosis. T10-11: There is mild disc desiccation. There is no significant foraminal or canal stenosis. T11-12: There is mild disc desiccation. There is no significant foraminal or canal stenosis. T12-L1: There is mild disc desiccation. There is no significant foraminal or canal stenosis. IMPRESSION: 1. No significant focal or lateralizing abnormality is present. Specifically there is no bone marro w edema or compression or significant foraminal or central canal narrowing and no disc herniation.
--- NOTE | 2018-11-04 13:54 | MRI ---
EXAM: MRI lumbar spine with and without contrast. TECHNIQUE: Multiplanar multisequence MRI of the lumbar spine was performed with and without contrast . COMPARISON: Thoracic spine MRI from today and CT abdomen pelvis from 11/02/2017 and lumbar spine ser ies from today HISTORY: Back pain and radiculopathy FINDINGS: There is no compression fracture. There is no inflammatory facet arthropathy or stress reaction in the pedicles. Alignment is anatomic. There is no significant spinal canal narrowing. The re are no pars defects. Signal in the conus is normal and there is no tether. The cauda equina is n ormal and symmetric with no evidence of arachnoiditis. Visualized portions of the pelvis show no sac ral fracture or sacroiliitis. There are no acute soft tissue abnormalities. There is a circumaortic left renal vein. There are 5 lumbar type vertebral bodies. There is a small Tarlov cyst seen on the left at S2. There is no pathologic enhancement. T12-L1: There is trace disc space desiccation. L1-2: There is trace disc space desiccation. There is a small central disc extrusion which extends domingo periorly which is of doubtful significance. Canal stenosis: None. L1 neural foraminal stenosis: None. L2 lateral recess stenosis: None. L2-3: There is minimal disc space desiccation and some mild facet and ligamentous hypertrophy. There is minimal anterior osteophytosis. Canal stenosis: None. L2 neural foraminal stenosis: None. L3 lateral recess stenosis: None. L3-4: There is minimal disc space desiccation with increasing facet and ligamentous hypertrophy. Canal stenosis: None L3 neural foraminal stenosis: Mild bilateral. L4 lateral recess stenosis: None. L4-5: There is some mild disc space desiccation and minimal bulging and very advanced facet and ligam entous hypertrophy. Canal stenosis: None. L4 neural foraminal stenosis: Moderate bilateral. L5 lateral recess stenosis: None. L5-S1: There is advanced mostly chronic endplate degenerative change with some minimal remaining bone marrow edema. There is disc space desiccation and narrowing and advanced facet and ligamentous hype rtrophy with some anterior osteophytosis. Canal stenosis: None. L5 neural foraminal stenosis: Mild right, moderate to severe left. S1 lateral recess stenosis: None right, moderate left. IMPRESSION: 1. Advanced lower lumbar facet arthropathy and advanced degenerative disc disease at the lumbosacral junction as described with resulting moderate to severe left L5 foraminal stenosis. 2. Other mild to moderate degenerative changes as detailed above. 3. Incidental circumaortic left renal vein which is a normal variant.
== END 2018-11-04 07:56 | disposition home or self-care (01) ==
LOC: RAD 07:55
PROVIDERS: ATTEND Pain Medicine Interventional Pain Medicine
DX: M50.323 Other cervical disc degeneration at C6-C7 level (principal); M50.223 Other cervical disc displacement at C6-C7 level; M47.812 Spondylosis without myelopathy or radiculopathy, cervical region; M48.02 Spinal stenosis, cervical region; M47.22 Other spondylosis with radiculopathy, cervical region; M51.36 Other intervertebral disc degeneration, lumbar region; M47.816 Spondylosis without myelopathy or radiculopathy, lumbar region; M47.817 Spondylosis without myelopathy or radiculopathy, lumbosacral region; M51.34 Other intervertebral disc degeneration, thoracic region; M47.814 Spondylosis without myelopathy or radiculopathy, thoracic region; M96.1 Postlaminectomy syndrome, not elsewhere classified

== ENCOUNTER 2019-01-14 15:51 | Outpatient (CLI) ==
[2016-02-10 11:48] VITALS: BMI 32.3
== END 2019-01-14 15:52 | disposition home or self-care (01) ==
LOC: CAR 15:51
PROVIDERS: ATTEND Psychiatry & Neurology Sleep Medicine
DX: G47.33 Obstructive sleep apnea (adult) (pediatric) (principal)
CPT/HCPCS: 95810

== ENCOUNTER 2019-04-07 08:47 | Outpatient (CLI) | payer OTHER ==
[2016-02-10 11:48] VITALS: BMI 32.3
--- NOTE | 2019-04-07 13:55 | DEXA ---
EXAM: Bone density HISTORY: Osteoporosis COMPARISON: 04/10/2017 for hip comparison TECHNIQUE: Digital images of the lumbar spine and bilateral hips were provided and calculation of bon e density was obtained. FINDINGS: Digital images demonstrate no evidence of compression deformities within the thoracolumbar spine. DEXA scan of the lumbar spine is of good quality. The total BMD equals 1.245 grams per square centimeter. T-score is 0.5. Z-score of 1.5. DEXA of the left hip was performed and of good quality. Femoral neck bone marrow density of 0.814 grams per square centimeter. T score is -1.6. Previous: 0.834 (which is decreased 2.4%) Z-score is -0.5. DEXA of the right hip was performed and of good quality. Total bone marrow density of 0.881 grams per square centimeter. T score is -1.0. Z-score is -0.2. Femoral neck bone mineral density is 0.779. T-score is -1.9. Z-score is -0.8 IMPRESSION: 1. Normal lumbar spine bone density by WHO criteria. Osteopenia of the bilateral hips based on WHO criteria. 2. Overall bone density has decreased in the left hip. 3. FRAX calculation tool demonstrates 10-year major osteoporotic fracture risk of 28.1% and hip frac ture risk of 1.9% T score greater than -1 is normal T score -1 to -2.5 is osteopenia T score less than - 2.5 is osteoporosis
== END 2019-04-07 08:48 | disposition home or self-care (01) ==
LOC: RAD 08:47
PROVIDERS: ATTEND Family Medicine
DX: Z12.31 Encounter for screening mammogram for malignant neoplasm of breast (principal); M81.0 Age-related osteoporosis without current pathological fracture; E89.40 Asymptomatic postprocedural ovarian failure